=== PATIENT | male | born 1955 | race African-American/Black ===

== ENCOUNTER 2024-04-23 00:23 | Emergency (ER) | payer OTHER ==
[~2024-04-23] VITALS: Ht 182.9 cm; Wt 84.0 kg
[2024-04-23 00:25] VITALS: BP 102/74; PULSE 84; RESP 16; TEMP 36.2; O2SAT 99
== END 2024-04-23 01:39 | disposition left against medical advice (07) ==
LOC: ER 00:23
DX: R42 Dizziness and giddiness (principal); Z86.73 Personal history of transient ischemic attack (TIA), and cerebral infarction without residual deficits; F19.90 Other psychoactive substance use, unspecified, uncomplicated
CPT/HCPCS: 99283